=== PATIENT | female | born 1950 | race Caucasian/White ===

== ENCOUNTER 2023-12-17 07:12 | Outpatient (CLI) | payer MEDICARE, BC, SELFPAY ==
--- NOTE | 2023-12-17 08:42 | W.ANESCHARGE ---
Anesthesia Charges Start Date/Time Anesthesia Start Date: 12/17/23 Anesthesia Start Time: 08:15 Stop Date/Time Anesthesia Stop Date: 12/17/23 Anesthesia Stop Time: 08:40
--- NOTE | 2023-12-17 08:53 | W.ANESCHARGE ---
Anesthesia Charges Start Date/Time Anesthesia Start Date: 12/17/23 Anesthesia Start Time: 08:15 Stop Date/Time Anesthesia Stop Date: 12/17/23 Anesthesia Stop Time: 08:40 Summary Extremes of Age - Over 70 or under 1: MDA
== END 2023-12-17 07:13 | disposition home or self-care (01) ==
LOC: OP CLINIC 07:14
PROVIDERS: PCP Family Medicine; Visit Provider Internal Medicine Gastroenterology
DX: Z12.11 Encounter for screening for malignant neoplasm of colon (principal); K63.5 Polyp of colon; K57.30 Diverticulosis of large intestine without perforation or abscess without bleeding
CPT/HCPCS: 00811; 45380; 88305; 99100; J2704

== ENCOUNTER 2024-09-17 08:12 | Outpatient (RCR) | payer MEDICARE, BC, SELFPAY ==
--- NOTE | 2024-09-17 09:24 | PT.OPEX ---
PT [place] Outpatient Eval PT [facility] Outpatient Eval Start: 09/16/24 17:03 Freq: Status: Active Protocol: Document 09/17/24 07:23 HLA (Rec: 09/17/24 09:18 HLA [id number]) E-signed By Lucero Zimmer, PT, DPT Physical Therapy Outpatient Evaluation Insurance Information Insurance Name Medicare B,Blue Cross/Blue Shield Medical Diagnosis R TKA Treating Diagnosis weakness, pain, stiffness R knee Referring MD Chowdhury Subjective Preferred Name Rosenda Subjective Pt reports pain medial knee mainly on stairs, patellar tendon walking, sit<>stand and walking. She has end stage OA and is undergoing R TKA on . Pt has been riding ex bike, doing some ex at [facility] preop. Pain Comments 6/10 on stairs Date of Last Physician Visit 09/16/24 Date of Surgery (If applicable) 09/22/24 Current Work Status Retired Precautions Weight Bearing Status Weight Bear as Tolerated Therapy Limitations/Systems Review Not Limited Objective Range of Motion B hips 0-110 hip flex, ER/IR WNL R knee 0-125, L knee 0-125 flex ankles 0-15 DF, PF to 70 Strength UES 5/5 except L shldr abd 4/5 R hip 5-/5, R knee ext 5-/5, L LE 5/5 Swelling edema around R knee Palpation pain palpation medial joint line Balance & Gait Gt stable no device, L > R varus. Stairs step to pattern, leads up with L, down with R Balance screen WNL Posture mildly rounded shldrs Sensation/Reflexes intact to light touch Assessment Assessment/Impression Rosenda is a 74 year old female with OA R knee undergoing a R TKA with Dr. Chowdhury at [facility] on . She is ind at baseline , amb no device, drives. Lives with spouse 1 level home, 2 step entry no railing. She will return home same day after surgery, OP at [facility] PT. Pt today presents with good strength B LEs, R knee 0-125. Pt was instructed in TKA ex program (quad sets, ham sets, ankle pumps, heel slides, SAQ, SLR, seated knee flex/ext and hamstring stretches) per protocol to be practiced pre- operatively and for improved learning post-operatively. Pt was instructed in hospital post-op progression in PT, safety, fall prevention. Pt was instructed in positioning in chair, use of ice/polar care, bed, transfer safety, gt safety with walker, stairs, car transfers and outpatient therapy progression. Primary Functional Limitations walking, stairs, pain with mobility Plan of Care Rehabilitation Potential Good Physical Therapy Goals 1. Within this session: Pt will verbalize understanding of pre-op/post-op safety, mobility and exercises with home program issued and pt returning for ongoing therapy after TKA replacement. Treatment Plan/Direct Interventions Gait Training,Ice/Cold/ Vasopneumatic,Manual Therapy, Neuromuscular Re-ed,Orthotics/ Braces,Therapeutic Activities, Therapeutic Exercises Frequency/Duration 1x Patient Will Be Discharged From Therapy Completion of LTG(s),Skills Plateau,Independent w/HEP, Independently Progressing Discharge Plan Comments home with spouse's support Evaluation Billing Untimed Code Treatment Minutes 15 PT Eval No Charge No Complexity Low Certification Information Initial Certification Date 09/17/24 Ending Certification Date 12/15/24 Provider Signature Required Yes Provider Signature Shows Agreement With POC & Medical Necessity Physician NPI Number Write NPI# Here Physician Comment/Change : Physician Signature & Date Requested Please Sign/Date Here
== END 2025-01-15 23:59 | disposition home or self-care (01) ==
PROVIDERS: PCP Family Medicine; Visit Provider Orthopaedic Surgery Sports Medicine
DX: M17.11 Unilateral primary osteoarthritis, right knee (principal); Z96.651 Presence of right artificial knee joint; R53.1 Weakness; M25.661 Stiffness of right knee, not elsewhere classified; Z51.89 Encounter for other specified aftercare
CPT/HCPCS: 97110; 97116; 97161

== ENCOUNTER 2024-09-22 05:54 | Day surgery (SDC) | payer MEDICARE, BC, SELFPAY ==
[2024-09-22] VITALS (18 sets, daily range): BP systolic 126–166; BP diastolic 75–104; PULSE 80–101; RESP 12–23; TEMP 36.1–36.5; O2SAT 92–98; BMI 26.2
--- OUTSIDE RECORDS SUMMARY | 2024-09-22 05:57 | XMS_ITS | Clinical Summary ---
Author Organization [employer] [facility] Address [place], [place] [address] Care Team Providers Care Value Analyst Name Role Phone Eda Sykes MD Primary Care Provide r Allergies Active Allergy Reactions Criticality Noted Date Comments Penicillins Rash 10/28/2007 Medications rosuvastatin (CRESTOR) 10 mg tabletIndications: Hyperlipidemia, unspecified hyperlipidemia type Take 1 Tablet (10 mg) by mouth once daily. 90 Tablet 3 09/16/19 25 Active amLODIPine (NORVASC) 5 mg tabletIndications: HTN (hypertension) Take 1 Tablet (5 mg) by mouth once daily. 90 Tablet 3 09/16/19 25 Active polyethylene glycol-electrolyte (GOLYTELY) 236-22.74-6.74 -5.86 gram suspensionIndicati ons:Screen for colon cancer Drink 2 liters (half the bottle) the day before colonoscopy and 2 liters (remaining prep) 6 hours prior to colonoscopy appointment. 4000 mL 08/22/19 24 025 Discontin ued(*Meghana ent states no longer taking) rosuvastatin (CRESTOR) 10 mg tabletIndications: Hyperlipidemia, unspecified hyperlipidemia type Take 1 Tablet (10 mg) by mouth once daily. 90 Tablet 3 11/29/19 24 025 Discontin ued(Reord er (E-cancel not sent)) amLODIPine (NORVASC) 5 mg tabletIndications: HTN (hypertension) Take 1 Tablet (5 mg) by mouth once daily. 90 Tablet 3 11/29/19 24 025 Discontin ued(Reord er (E-cancel not sent)) Active Problems Problem Noted Date Diagnosed Date Vitamin D deficiency 11/07/2013 Hyperlipidemia 10/04/2012 Osteopenia 10/30/2008 Resolved Problems Problem Noted Date Diagnosed Date Resolved Date Screen for colon cancer 10/31/2012 04/0 11/2013 Overview (10/31/2012): Colonoscopy 10/2012 diverticulosis repeat in 10 years Encounters Date Type Department Care Team Description 09/16/2024 8:00 AM MACHINERY ENGINEER Office Visit [facility] [address] [place] [address] Eda Sykes MD Pre-Op Exam (Right knee replacement 09/22/24 Dr. Chowdhury) 09/16/2024 Travel 09/11/2024 Travel from Last 3 Months Immunizations Name Administration Dates Next Due COVID-19 vaccine (Datadecision NTech 30mcg/0.3mL) VITA ELLIOTT 06/02/2021,10/20/2020,09/29/2020 Pneumococcal Poly,23-Valent (Pneumovax) 10/18/19 19 Pneumococcal conj 13-Valent (Prevnar 13) 018 Td (Age >=7 Years) 11/14/2004 Tdap 09/21/2017 Family History Medical History Relation Name Comments Stroke Father Cancer-colon Maternal Uncle Psychiatric illness Mother Demi rs Relation Name Status Comments Father (Age 84) CVA Maternal Uncle Mother Social History Tobacco Use Types Packs/Day Years Used Date Smoking Tobacco: Never Smokeless Tobacco: Never Tobacco Cessation:Counseling Given: Yes Alcohol Use Standard Drinks/Week Comments No 0 (1 standard drink = 0.6 oz pur e alcohol) PHQ-2 Answer Date Recorded PHQ-2 TOTAL SCORE 0 12/07/2022 Social Connections Answer Date Recorded Do you often feel lonely or isolated from those around you? 0 11/19/2023 Financial Resource Strain Answer Date R ecorded Difficulty of Paying Living Expenses 3 11/19/2023 Difficulty of Paying Living Expenses Not on file 11/19/2023 Food Insecurity Answer Date Recorded Do you worry your food will run out before you are able to buy more? 1 11/19/2023 Transportation Needs Answer Date Record ed Does lack of transportation keep you from medica l appointments? 1 11/19/2023 Does lack of transportation keep you from work, meetings or getting things that you need? 1 11/19/2023 Housing Stability Answer Date Recorded What is your housing situation today? 1 11/19/2023 Utilities Answer Date Recorded Do you have trouble paying f or utilities (for example, heat, electricity, water, phone)? 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 Not on file Not on file Not on ben e Obstetrics History Para Term AB IAB SAB Ectopic Multiple Livin g Live Births 2 2 2 0 0 0 0 0 0 2 Date Outcome GA Total Labor Labor/2nd/3rd Weight Sex Type Anes PTL Toyin A1 A5 Name Clin Term Term Last Filed Vital Signs Vital Sign Reading Time Taken Comments Blood Pressure 161/95 09/16/2024 8:02 AM MACHINERY ENGINEER Pulse 95 09/16/2024 8:02 AM MACHINERY ENGINEER Temperature 36.1 C (96.9 F) 09/16/2015 9:46 AM MACHINERY ENGINEER Respiratory Rate - - Oxygen Saturation 98% 09/16/2024 8:02 AM MACHINERY ENGINEER Inhaled Oxygen Concentration - - Weight 75.8 kg (167 lb) 09/16/2024 8:02 AM MACHINERY ENGINEER Height 170.8 cm (5' 7.25) 11/29/2023 8:27 AM CD T Body Mass Index 25.96 11/29/2023 8:27 AM CDT Plan of Treatment Health Maintenance Due Date Last Done Comments Hepatitis C screening for ag e 18-79 1968 Zoster (shingles) series for age 50+ (1 of 2) 2000 RSV vaccine for adults or (1 - Risk 60-74 years 1-dose series) 2010 Depression screening for age 12+ 12/08/2023 12/07/2022, 12/06/2021, 11/25/2020, Additional history exists Medicare Wellness for age 65+ 12/08/2023, 12/06/2021, 11/25/2020, Additional history exists Mammogram for age 45-75 12/14/2023 12/14/19 23, 12/08/2021, 09/27/2017, Additional history exists COVID-19 vaccine series ( season) 2024 06/02/2021, 10/20/2020, 09/29/2020 Influenza for age 65+ 04/06/2024 BMI (ht and wt on same day) for age 18+ 11/28/2024 11/29/2023, 12/06/2021, 11/25/2020, Additional history exists Tetanus booster 09/21/2027 09/21/2017, 11/14/2004 Lipids for age 45-75 09/16/2029 09/16/2024, 11/29/2023, 12/07/2022, Additional history exists Colonoscopy through age 75 12/16/203312/16, 12/17/2023, 12/17/2023, Additional history exists Tdap Completed 09/21/2017 DEXA/DXA scan for age 65+ Completed 2017, 11/14/2013, 11/17/2010, Additional history exists Pneumococcal series for age 50+ Completed 9, 09/21/2017 Procedures Procedure Name Priority Date/Time Associated Diagnosis Comments LIPID PANEL W REFLEX MEASURED LDL Routine 09/16/2024 8:52 AM MACHINERY ENGINEER Hyperlipidemia, unspecified hyperlipidemia type BASIC METABOLIC PANEL Routine 09/16/2024 8:52 AM MACHINERY ENGINEER HTN (hypertension) CBC WITH AUTO DIFFERENTIAL Routine 09/16/2024 8:52 AM MACHINERY ENGINEER Preoperative examination COLONOSCOPY SCREENING Routine 12/17/2023 12:00 AM CDT Screening for colon cancer XR MAMMO BILAT SCREENING Routine 12/13/2022 8:28 AM CDT Encounter for screening mammogram for malignant neoplasm of breast XR DXA BONE DENSITY 2 SITES AXIAL Routine 09/27/2017 10:40 AM MACHINERY ENGINEER Menopause from Last 3 Months or Most Recently Relevant to Health Maintenance Results * (ABNORMAL) LIPID PANEL W REFLEX MEASURED LDL (09/16/2024 8:52 AM MACHINERY ENGINEER) CHOLESTEROL, TOTAL 200(H) <200 mg/dL [facility] HDL CHOLESTEROL 73 > OR = 50 mg/dL [facility] TRIGLYCERIDES 95 <150 mg/dL [facility] LDL-CHOLESTEROL 108(H) mg/dL (calc) [facility] Comment: Reference range: <100 Desirable range <100 mg/dL for primary prevention; <70 mg/dL for patients with CHD or diabetic patients with > or = 2 CHD risk factors. LDL-C is now calculated using the Joao calculation, which is a validated novel method providing better accuracy than the Friedewald equation in the estimation of LDL-C. Alejandro ORDONEZ et al. FARHAN. 2013;310(19): 1279-6431 (http://education.[employer]/faq/NZR061) CHOL/HDLC RATIO 2.7 <5.0 (calc) [facility] NON HDL CHOLESTEROL 127 <130 mg/dL (calc) [facility] Comment: For patients with diabetes plus 1 major ASCVD risk factor, treating to a non-HDL-C goal of <100 mg/dL (LDL-C of <70 mg/dL) is considered a therapeutic option. Blood BLOOD SPECIMEN / Unknown 09/16/2024 8:52 AM MACHINERY ENGINEER 09/16/2024 8:53 AM MACHINERY ENGINEER Narrative [facility] - 09/17/2024 4:04 AM MACHINERY ENGINEER FASTING:YES FASTING: YES us Eda Sykes MD CHEMISTRY Final Result [facility] [address] [place] [address], [facility] [address] [place] [address] * (ABNORMAL) CBC AND DIFFERENTIAL (09/16/2024 8:52 AM MACHINERY ENGINEER) WHITE BLOOD CELL COUNT 6.4 3.8 - 10.8 Thousand/u L [facility] RED BLOOD CELL COUNT 5.23(H) 3.80 - 5.10 Million/uL [facility] HEMOGLOBIN 15.9(H) 11.7 - 15.5 g/dL [facility] HEMATOCRIT 48.3(H) 35.0 - 45.0 % [facility] MCV 92.4 80.0 - 100.0 fL [facility] MCH 30.4 27.0 - 33.0 pg [facility] MCHC 32.9 32.0 - 36.0 g/dL [facility] Comment: For adults, a slight decrease in the calculated MCHC value (in the range of 30 to 32 g/dL) is most likely not clinically significant; however, it should be interpreted with caution in correlation with other red cell parameters and the patient's clinical condition. RDW 13.1 11.0 - 15.0 % [facility] PLATELET COUNT 394 140 - 400 Thousand/u L [facility] MPV 10.5 7.5 - 12.5 fL [facility] ABSOLUTE NEUTROPHILS 3,450 1,500 - 7,800 cells/uL [facility] ABSOLUTE LYMPHOCYTES 2,144 850 - 3,900 cells/uL [facility] ABSOLUTE MONOCYTES 563 200 - 950 cells/uL [facility] ABSOLUTE EOSINOPHILS 173 15 - 500 cells/uL [facility] ABSOLUTE BASOPHILS 70 0 - 200 cells/uL [facility] NEUTROPHILS 53.9 % [facility] LYMPHOCYTES 33.5 % [facility] MONOCYTES 8.8 % [facility] EOSINOPHILS 2.7 % [facility] BASOPHILS 1.1 % [facility] Blood BLOOD SPECIMEN / Unknown 09/16/2024 8:52 AM MACHINERY ENGINEER 09/16/2024 8:53 AM MACHINERY ENGINEER Narrative [facility] - 09/17/2024 4:01 AM MACHINERY ENGINEER FASTING:YES FASTING: YES Eda Sykes MD HEMATOLOGY Final Result [facility] [address] [place] [address], [place] [phone] [address] [facility] [address] [place] [address] * (ABNORMAL) BASIC METABOLIC PANEL (09/16/2024 8:52 AM MACHINERY ENGINEER) Pathologist [facility] GLUCOSE 93 65 - 99 mg/dL [facility] Comment: Fasting reference interval UREA NITROGEN (BUN) 27(H) 7 - 25 mg/dL [facility] CREATININE 1.01(H) 0.60 - 1.00 mg/dL [facility] EGFR 58(L) > OR = 60 mL/min/1.7 3m2 [facility] BUN/CREATININE RATIO 27(H) 6 - 22 (calc) [facility] SODIUM 141 135 - 146 mmol/L [facility] POTASSIUM 4.2 3.5 - 5.3 mmol/L [facility] CHLORIDE 104 98 - 110 mmol/L [facility] CARBON DIOXIDE 27 20 - 32 mmol/L [facility] ELECTROLYTE BALANCE 10 7 - 17 mmol/L (calc) [facility] CALCIUM 10.2 8.6 - 10.4 mg/dL [facility] Blood BLOOD SPECIMEN / Unknown 09/16/2024 8:52 AM MACHINERY ENGINEER 09/16/2024 8:53 AM MACHINERY ENGINEER Narrative [facility] - 09/17/2024 4:04 AM MACHINERY ENGINEER FASTING:YES FASTING: YES Eda Sykes MD CHEMISTRY Final Result [facility] [address] [place] [address], [place] [phone] [address] [facility] [address] [place] [address] * COLONOSCOPY SCREENING (12/17/2023 12:00 AM CDT) Result [facility] Eda Sykes MD GI PROCEDURE ORD Claudia l Result * XR MAMMO BILAT SCREENING (12/13/2022 8:28 AM CDT) Anatomical Region Laterality Modality BREASTS, Breast Left, Breast Right Bilateral Mammography Impressions 12/13/2022 3:55 PM CDT There is no radiographic evidence for malignancy. Recommend annual mammograms. MAMMOGRAM ASSESSMENT: ACR 1 Negative PATIENTS: You will also receive a letter with your examination results in an easy to read format. If you have questions about your results, please contact your referring provider. Narrative 12/13/2022 3:55 PM CDT For Patients: As a result of the Cures Act, medical imaging exams and procedure reports are released immediately into your electronic medical record. You may view this report before your referring provider. If you have questions, please contact your health care provider. XR MAMMO BILAT SCREENING [[id number]] CLINICAL HISTORY: This is an asymptomatic 72 y.o. patient. INDICATION FOR EXAM: Mammogram Screening. TECHNIQUE: CC & MLO views were obtained. This study was evaluated with the assistance of Computer-Aided Detection. COMPARISON FILM: Yes 12/08/21 [facility] 09/27/17 [facility] FINDINGS: The breasts have scattered areas of fibroglandular density. There are no dominant masses, suspicious micro calcifications or areas of architectural distortion. Eda Sykes MD MAMMO Final Result * (ABNORMAL) XR DXA BONE DENSITY 2 SITES AXIAL [[id number]] (09/27/2017 10:40 AM MACHINERY ENGINEER) Anatomical Region Laterality Modality Spine, HIPS, HIPL, HIPR Other Narrative 10/03/2017 10:47 AM MACHINERY ENGINEER Please see scanned document for results of this study. Eda Sykes MD DEXA Final Result from Last 3 Months or Most Recently Relevant to Health Maintenance Insurance [employer] BLUE MR PB ONLY Advance Directives Documents on File Type Date Recorded Patient Manufacturing [employer] Expl anation Healthcare Directive 06/15/2014 2:59 PM A [facility], 10/15/2001 Care Teams Value Analyst Relationship Specialty Start Date End Date Eda Sykes MD [address] [place] [address] PCP - General Family Practice 10/13/10
[2024-09-22] MEDS: LACTATED RINGERS 1000 ML 1,000 ML 100 ML IV (06:05)
[2024-09-22] MEDS: ACETAMINOPHEN 500 MG TABLET 1000 MG PO (06:40)
[2024-09-22] MEDS: OXYCODONE (CR) 10 MG TAB.ER.12H PO (06:40)
[2024-09-22] MEDS: SODIUM CHLORIDE 0.9 % (FLUSH) 10 ML SYRINGE IVF (07:06)
--- NOTE | 2024-09-22 07:08 | W.PM.H&PU ---
History & Physical Update History & Physical Update H&P Reviewed and patient assessed: No changes noted
[2024-09-22] MEDS: MIDAZOLAM HCL 1 MG/ML inj IVP (07:20)
[2024-09-22] MEDS: fentaNYL 100 MCG/2 ML inj IVP (07:20)
--- NOTE | 2024-09-22 07:32 | SUR.PREOP ---
TIME?OUT:?0720 PT/RN/MDA?VERIFICATION?OF?SURGICAL?SITE,?PROCEDURE,?AND?CONSENT OBTAINED?PRIOR?TO?INVASIVE?PROCEDURE.
[2024-09-22] MEDS: CEFAZOLIN 2 GM in 0.9 % SODIUM CHLORIDE Mini-bag 100 ML IVPB (07:45)
[2024-09-22] MEDS: TRANEXAMIC ACID 100 MG/ML INJ 1000 MG IV (07:50)
--- NOTE | 2024-09-22 07:53 | P.ANES_ITS ---
Anesthesia Charges Start Date/Time Anesthesia Start Date: 09/22/24 Anesthesia Start Time: 07:26 Stop Date/Time Anesthesia Stop Date: 09/22/24 Anesthesia Stop Time: 09:31 Summary Extremes of Age - Over 70 or under 1: PACKING CHECKER Coding CPT Codes CPT Codes: ANESTH KNEE ARTHROPLASTY - 01802 ([id number]) P2 - PATIENT W/MILD SYST DISEASE, QK - LUBRICATION WORKER 2-4 CNCRNT ANES PROC, QX - PACKING CHECKER SVC W/ MD MED DIRECTION Additional Codes: Summary - Extremes of Age - Over 70 or under 1: PACKING CHECKER ([id number])
--- NOTE | 2024-09-22 07:53 | W.ANESCHARGE ---
Anesthesia Charges Start Date/Time Anesthesia Start Date: 09/22/24 Anesthesia Start Time: 07:26 Stop Date/Time Anesthesia Stop Date: 09/22/24 Anesthesia Stop Time: 09:31 Summary Extremes of Age - Over 70 or under 1: AUTO SLIP COVER INSTALLER Coding CPT Codes CPT Codes: ANESTH KNEE ARTHROPLASTY - 81008 ([id number]) P2 - PATIENT W/MILD SYST DISEASE, QK - PASSENGER BARGE MASTER 2-4 CNCRNT ANES PROC, QX - AUTO SLIP COVER INSTALLER SVC W/ MD MED DIRECTION Additional Codes: Summary - Extremes of Age - Over 70 or under 1: AUTO SLIP COVER INSTALLER ([id number])
--- NOTE | 2024-09-22 09:29 | CRLHL7_ITS ---
For Patients: As a result of the Cures Act, medical imaging exams and procedure reports are released immediately into your electronic medical record. You may view this report before your referring provider. If you have questions, please contact your health care provider. Indication: Postop. Technique: Right knee 3 views. Comparison: X-ray knee August 2024 Findings/ Impression: Acute postoperative changes of right total knee arthroplasty. Prosthesis are appropriately positioned and well aligned. No periprosthetic fracture. Moderate knee joint effusion, adjacent soft tissue swelling and emphysema. Dictated by Helena Chavez MD @ 09/22/2024 12:40:36 PM (Electronically Signed)
--- NOTE | 2024-09-22 09:35 | PM.ORPRC ---
Procedure Note Date of procedure: 09/22/24 Procedure: PREOPERATIVE DIAGNOSIS: 1. Right knee osteoarthritis, primary, severe POSTOPERATIVE DIAGNOSIS: 1. Right knee osteoarthritis, primary, severe PROCEDURE: 1. Right total knee arthroplasty - subvastus SURGEON: Krzysztof Chowdhury MD. ACTUARIAL ANALYST: CRICKET Cervantes - Of note, a skilled family medicine physician assistant was critical for this case to aid in patient positioning, tissue retraction, limb manipulation/positioning, and closure. ANESTHESIA: Spinal anesthetic IMPLANTS: DePuy J&J all cemented TKA - Attune PS femur size 6 narrow Size 5 tibia 5 poly spacer 38 mm patella TOURNIQUET: 90 min at 300 torr EBL: 50 ml COMPLICATIONS: None evident INDICATIONS: The patient is a pleasant 74-year-old female who has experienced severe right knee pain and difficulty bearing weight. Workup included x-rays which revealed severe osteoarthrosis in the knee. Given the deformity, the dysfunction, and the pain, as well as the failure of nonoperative management, recommendation was made for surgery. FINDINGS: Full-thickness chondral loss throughout the medial compartment and to a lesser degree patellofemoral and lateral compartments. Degenerative meniscus pathology medial greater than lateral. Moderate effusion upon entering the joint. DESCRIPTION OF PROCEDURE: Following a thorough discussion of risks, benefits, and alternatives consent was obtained and the right knee was marked. The patient was brought to the operating room and placed supine on the operating table. Induction of anesthesia was undertaken. 1 g IV Ancef and 1 g tranexamic acid was administered within 1 hr of incision preoperatively. Proper time-out was performed identifying proper patient, site, procedure. The operative extremity was prepped and draped in the appropriate sterile fashion using ChloraPrep after the patient was positioned supine with all bony prominences well padded. A longitudinal, anterior, midline skin incision was made starting approximately 3cm proximal to the superior pole of the patella and advanced distal to the tibial tubercle. A subvastus approach was utilized. A medial subperiosteal sleeve was created with knife, mckeon elevator and curved osteotome. The retropatellar fatpad was resected and the synovium in the suprapatellar pouch excised to visualize the anterior femoral cortex. Femoral preparation was performed via an intramedullary guide. Step drill allowed access into the femoral canal. The distal cutting guide was placed with 5? of valgus and 10 mm cut on the distal femur. Femur was sized using a posterior referencing guide in 3? of external rotation. This found have a best fit with the sizing noted above. The 4 in 1 cutting block was then placed, and the distal femur shaped accordingly. The box cut was then created and the trial implant inserted to confirm appropriate fit. We turned our attention to the proximal tibia. Extramedullary guide was utilized for cutting with the goal of being 90 degree cut from the mechanical axis of the tibia in the varus/valgus plane utilizing tibial crest as the primary alignment. Initially a 3 mm resection was performed from the medial tibial plateau. Ultimately, balancing was achieved in both flexion and extension in both varus and valgus. The knee was able to achieve full extension as well comfortably. The patella was initially measured and found have a thickness of 21 mm. It was resected back to approximately 14 mm. It was sized to be a best fit with as noted above. This was drilled, trial placed. All trials were placed and found to have an excellent stability and balance. At this stage, trial implants were removed, the knee was thoroughly irrigated with normal saline, and the cement was mixed. After irrigation, the knee was thoroughly dried, and cement placed, with the real tibial and femoral implants placed along with the patella. Trial poly spacer was placed and confirmed to have excellent range of motion and full extension, and the real poly spacer opened and inserted. All extra cement was removed, and a 3 min Betadine soak performed. Finally, a final irrigation round with normal saline was performed. Closure performed with 0 Vicryl and #0 Stratafix for the quad tendon/retinaculum. 2-0 Vicryl for the subcutaneous and 4-0 Stratafix for subcuticular closure. Dressings were applied and the patient was awoken from anesthesia after the tourniquet deflated and transferred the PACU in stable condition. A skilled family medicine physician assistant was critical for this case to aid in patient positioning, tissue retraction, bone exposure, limb manipulation/positioning, patient safety, and closure. PLAN: 1. Weight bear as tolerated operative extremity. 2. 23 hr perioperative antibiotics. 3. Ice. 4. PT/OT consults for ambulation assistance/mobility education. 5. Social work consult for discharge planning. 6. DVT prophylaxis with at SCDs and aspirin twice daily.
--- NOTE | 2024-09-22 09:40 | P.ANES_ITS ---
Anesthesia Charges Start Date/Time Anesthesia Start Date: 09/22/24 Anesthesia Start Time: 07:26 Stop Date/Time Anesthesia Stop Date: 09/22/24 Anesthesia Stop Time: 09:31 Summary Extremes of Age - Over 70 or under 1: MDA Coding CPT Codes CPT Codes: ANESTH KNEE ARTHROPLASTY - 91355 ([id number]) QK - HEALTH CENTER ASSOCIATE 2-4 CNCRNT ANES PROC, QX - CANINE SERVICE TEACHER SVC W/ MD MED DIRECTION, P2 - PATIENT W/MILD SYST DISEASE Additional Codes: Summary - Extremes of Age - Over 70 or under 1: MDA ([id number])
--- NOTE | 2024-09-22 09:40 | W.PM.NB ---
Nerve Block Nerve Block Time Seen by Provider: 07:23 Date Seen: 09/22/24 Type of block requested by surgeon for post-operative analgesia: adductor canal Side: right Time out performed: Yes Verification of patient name: Yes Verification of date of : Yes Site marking: site marked Name of person performing procedure: Tony Continuous monitoring Was continuous monitoring of O2 sat, B/P, building performance specialist, recorded every 15 minutes?: Yes Procedure Checklist: sterile prep, needles and gloves Ultrasound guided. Images saved: Yes Medications given in 5ml increments after negative aspiration: Marcaine %: 0.25 mL: 15 Needle gauge: 20 Precedex (mcg): 25 Patient tolerated procedure well: Yes Block Charges Block Charge (with Pro Fee): Femoral Nerve Use of Ultrasound Machine for Block: Yes- US Guidance/pain block
--- NOTE | 2024-09-22 09:41 | W.PM.NB ---
Nerve Block Nerve Block Time Seen by Provider: 07:23 Date Seen: 09/22/24 Type of block requested by surgeon for post-operative analgesia: geniculars Side: right Time out performed: Yes Verification of patient name: Yes Verification of date of : Yes Site marking: site marked Name of person performing procedure: Tony Continuous monitoring Was continuous monitoring of O2 sat, B/P, health analytics consultant, recorded every 15 minutes?: Yes Procedure Checklist: sterile prep, needles and gloves Ultrasound guided. Images saved: Yes Medications given in 5ml increments after negative aspiration: Marcaine %: 0.25 mL: 9 Needle gauge: 25 Patient tolerated procedure well: Yes Block Charges Block Charge (with Pro Fee): Genicular Nerve Block
[2024-09-22] MEDS: fentaNYL 100 MCG/2 ML inj 50 MCG IVP (09:51)
--- NOTE | 2024-09-22 10:09 | SUR.PHASEI ---
patient met discharge criteria per anesthesia
[2024-09-22] MEDS: 0.9 % SODIUM CHLORIDE 500 ML 500 ML 100 ML IV (10:20)
[2024-09-22] MEDS: hydrOXYzine pamoate 25 MG CAPSULE PO (10:50)
[2024-09-22] MEDS: OXYCODONE 5 MG TABLET PO (13:05)
--- NOTE | 2024-09-22 14:50 | SUR.PHASEII ---
Pt tried to void after PT , not successful. Bladder scan for 236cc. Pt states my butt still feels numb. Pt ambulated around unit and will try to void.
--- NOTE | 2024-09-22 15:27 | SUR.PHASEII ---
Straight cath for 350cc mcgowan yellow urine. Wheelchair out to car with .
--- NOTE | 2024-09-22 15:28 | SUR.PHASEII ---
Encourage PO intake at home and to try to void again in 2 hours.
== END 2024-09-22 15:29 | disposition home or self-care (01) ==
PROVIDERS: PCP Family Medicine; Visit Provider Orthopaedic Surgery Sports Medicine
PROC: (CPT 27447; principal; 2024-09-22 07:30)
DX: M17.11 Unilateral primary osteoarthritis, right knee (principal); G89.18 Other acute postprocedural pain
CPT/HCPCS: 27447; 01402; 64447; 64454; 73560; 76942; 97110; 97116; 97161; 99100; A9270; C1776; J0665; J0690; J1100; J2250; J2405; J2704; J3010; J3490; J7030; J7120

== ENCOUNTER 2025-07-01 13:04 | Outpatient (CLI) | payer MEDICARE, BC, SELFPAY ==
[2025-07-01 13:17] VITALS: BP 147/82; PULSE 96; RESP 16; TEMP 36.6; O2SAT 96
--- NOTE | 2025-07-01 13:40 | P.PCN_ITS ---
Procedure Note Time Seen by Provider: 13:45 Date Seen: 07/01/25 Provider Contact Time: 14:30 Date of procedure: 07/01/25 Will [facility] bill your pro fee for this procedure?: Yes Procedure: CRYONEUROLYSIS TREATMENT REPORT REFERRING PROVIDER: Krzysztof Chowdhury TREATMENT PROVIDER: Tk Jimenez PREOPERATIVE DIAGNOSIS: Left knee osteoarthritis POSTOPERATIVE DIAGNOSIS: Left knee osteoarthritis? PROCEDURE: Cryoneurolysis of Multiple Sensory Nerves of the Knee ANESTHESIA: Local INDICATIONS: The patient is a very pleasant 75-year-old female patient with primary osteoarthritis involving the left knee who presents today for cryoneurolysis of multiple sensory nerves to the knee for severe knee pain.?Patient medical history was reviewed. The risks, benefits, treatment alternatives, and complications were discussed with the patient, including but not limited to bleeding, infection, nerve or tissue damage.?Informed consent was obtained. ? PRE-TREATMENT MOTOR ASSESSMENT/PAIN SCORE: Patient was able to demonstrate intact gross motor function with plantarflexion, dorsiflexion, adduction, abduction, hip flexion, and extension of the lower extremity.?Pre-treatment pain score of 3 out of 10 in the left knee. DESCRIPTION OF PROCEDURE: After obtaining informed consent, the patient was brought back to the treatment room and positioned supine on the table.?The left lower extremity was prepped with Chlorhexadine.?We began the procedure by performing our procedural pause.?Once this was completed and verified to be accurate, I began the procedure by identifying the nerves with the use of bedside ultrasound.?After the nerves were identified, the skin was marked and, using 1% lidocaine plain, the area of the nerves were anesthetized. ? After the anesthetic was administered, the Smart Tip 2190 cryoneurolysis needle was inserted into the treatment sites using ultrasound guidance.?Treatment was then initiated on the left lower extremity with the following nerves treated: Superior, superior medial, superior lateral, inferior medial genicular nerves and the infrapatellar branch of the saphenous nerve. At the termination of the treatment, the cryoneurolysis needle was removed with the patient's skin cleansed and Band-Aids and compression dressing applied. Patient tolerated the procedure without any incident or concern.? Patient was then instructed to stand, mobilize the joint, and was examined to ensure gross motor skills were intact. COMPLICATIONS: None POST-TREATMENT PAIN SCORE: 0 out of 10 in the left knee DISPOSITION: Discharge instructions were given to the patient with education on the post-procedure expectations. Patient was instructed to call the Ortho clinic with any post-procedure concerns or questions.
[2025-07-01 14:23] VITALS: BP 153/83; PULSE 96; RESP 16; O2SAT 97
== END 2025-07-01 14:35 | disposition home or self-care (01) ==
LOC: OP CLINIC 13:04
PROVIDERS: PCP Family Medicine; Visit Provider Nurse Anesthetist, Certified Registered
DX: M17.12 Unilateral primary osteoarthritis, left knee (principal)
CPT/HCPCS: 64640; 76942; C9809

== ENCOUNTER 2025-07-20 06:57 | Day surgery (SDC) | payer MEDICARE, BC, SELFPAY ==
[2025-07-20] VITALS (19 sets, daily range): BP systolic 91–147; BP diastolic 57–92; PULSE 78–96; RESP 13–21; TEMP 36.3–37.7; O2SAT 92–97; BMI 26.6
--- NOTE | 2025-07-20 07:33 | W.PM.H&PU ---
History & Physical Update History & Physical Update H&P Reviewed and patient assessed: No changes noted
[2025-07-20] MEDS: SODIUM CHLORIDE 0.9 % (FLUSH) 10 ML SYRINGE IVF (07:40)
[2025-07-20] MEDS: LACTATED RINGERS 1000 ML 1,000 ML 100 ML IV ×3 (07:40→15:00)
[2025-07-20] MEDS: ACETAMINOPHEN 500 MG TABLET 1000 MG PO (08:37)
[2025-07-20] MEDS: OXYCODONE (CR) 10 MG TAB.ER.12H PO (08:37)
[2025-07-20] MEDS: MIDAZOLAM HCL 1 MG/ML inj IVP (08:46)
--- NOTE | 2025-07-20 08:46 | SUR.PREOP ---
TIME?OUT:?0737 PT/Maura Irby RN/Dr. Tony MDA?VERIFICATION?OF?SURGICAL?SITE left knee,?PROCEDURE,?AND?CONSENT OBTAINED?PRIOR?TO?INVASIVE?PROCEDURE.
--- NOTE | 2025-07-20 09:09 | P.ANES_ITS ---
Anesthesia Charges Start Date/Time Anesthesia Start Date: 07/20/25 Anesthesia Start Time: 09:11 Stop Date/Time Anesthesia Stop Date: 07/20/25 Anesthesia Stop Time: 11:12 Summary Extremes of Age - Over 70 or under 1: MDA Coding CPT Codes CPT Codes: ANESTH KNEE ARTHROPLASTY - 64295 ([id number]) P2 - PATIENT W/MILD SYST DISEASE, QK - SECURITY PROJECT MANAGER 2-4 CNCRNT ANES PROC, QX - HRIS COORDINATOR SVC W/ MD MED DIRECTION Additional Codes: Summary - Extremes of Age - Over 70 or under 1: MDA ([id number])
--- NOTE | 2025-07-20 09:09 | W.ANESCHARGE ---
Anesthesia Charges Start Date/Time Anesthesia Start Date: 07/20/25 Anesthesia Start Time: 09:11 Stop Date/Time Anesthesia Stop Date: 07/20/25 Anesthesia Stop Time: 11:12 Summary Extremes of Age - Over 70 or under 1: MDA Coding CPT Codes CPT Codes: ANESTH KNEE ARTHROPLASTY - 13174 ([id number]) P2 - PATIENT W/MILD SYST DISEASE, QK - DOLPHIN TRAINER 2-4 CNCRNT ANES PROC, QX - ELEVATOR OPERATOR SVC W/ MD MED DIRECTION Additional Codes: Summary - Extremes of Age - Over 70 or under 1: MDA ([id number])
--- NOTE | 2025-07-20 09:09 | W.PM.NB ---
Nerve Block Nerve Block Time Seen by Provider: 08:45 Date Seen: 07/20/25 Type of block requested by surgeon for post-operative analgesia: adductor canal Side: left Time out performed: Yes Verification of patient name: Yes Verification of date of : Yes Site marking: site marked Name of person performing procedure: Tony Continuous monitoring Was continuous monitoring of O2 sat, B/P, radiographer cardiac catheterization, recorded every 15 minutes?: Yes Procedure Checklist: sterile prep, needles and gloves Ultrasound guided. Images saved: Yes Medications given in 5ml increments after negative aspiration: Marcaine %: 0.25 mL: 15 Needle gauge: 20 Precedex (mcg): 25 Patient tolerated procedure well: Yes Block Charges Block Charge (with Pro Fee): Femoral Nerve Use of Ultrasound Machine for Block: Yes- US Guidance/pain block
--- NOTE | 2025-07-20 09:10 | W.PM.NB ---
Nerve Block Nerve Block Time Seen by Provider: 08:45 Date Seen: 07/20/25 Type of block requested by surgeon for post-operative analgesia: geniculars Side: left Time out performed: Yes Verification of patient name: Yes Verification of date of : Yes Site marking: site marked Name of person performing procedure: Tony Continuous monitoring Was continuous monitoring of O2 sat, B/P, physician compensation analyst, recorded every 15 minutes?: Yes Procedure Checklist: sterile prep, needles and gloves Ultrasound guided. Images saved: Yes Medications given in 5ml increments after negative aspiration: Marcaine %: 0.25 mL: 9 Needle gauge: 25 Patient tolerated procedure well: Yes Block Charges Block Charge (with Pro Fee): Genicular Nerve Block
[2025-07-20] MEDS: TRANEXAMIC ACID 100 MG/ML INJ 1000 MG IV (09:27)
--- NOTE | 2025-07-20 10:54 | PM.ORPRC ---
Procedure Note Date of procedure: 07/20/25 Procedure: PREOPERATIVE DIAGNOSIS: 1. Left knee osteoarthritis, primary, severe POSTOPERATIVE DIAGNOSIS: 1. Left knee osteoarthritis, primary, severe PROCEDURE: 1. Left total knee arthroplasty - subvastus; limited tourniquet; cemented SURGEON: Krzysztof Chowdhury MD. PATROL COMMANDER: CRICKET Cervantes - Of note, a skilled delivery driver assistant was critical for this case to aid in patient positioning, tissue retraction, limb manipulation/positioning, and closure. ANESTHESIA: Spinal anesthetic EBL: 100 ml IMPLANTS: DePuy J&J all cemented TKA - Attune PS femur size 6 narrow Size 5 tibia 5mm poly spacer 38mm patella TOURNIQUET: 30 minutes at 250 torr COMPLICATIONS: None evident INDICATIONS: The patient is a pleasant 75-year-old female who has experienced severe left knee pain and difficulty bearing weight. Workup included x-rays which revealed severe osteoarthrosis in the knee. Given the deformity, the dysfunction, and the pain, as well as the failure of nonoperative management, recommendation was made for surgery. FINDINGS: Full-thickness chondral loss diffusely throughout the medial compartment with erosion of the medial femur and tibial plateau. Significant chondromalacia patellofemoral and lateral compartment as well. Degenerative meniscus pathology medial greater than lateral. Moderate effusion upon entering the joint. DESCRIPTION OF PROCEDURE: Following a thorough discussion of risks, benefits, and alternatives consent was obtained and the left knee was marked. The patient was brought to the operating room and placed supine on the operating table. Induction of anesthesia was undertaken. 1 g IV Ancef and 1 g tranexamic acid was administered within 1 hr of incision preoperatively. Proper time-out was performed identifying proper patient, site, procedure. The operative extremity was prepped and draped in the appropriate sterile fashion using ChloraPrep after the patient was positioned supine with all bony prominences well padded. A longitudinal, anterior, midline skin incision was made starting approximately 3cm proximal to the superior pole of the patella and advanced distal to the tibial tubercle. A subvastus approach was utilized. A medial subperiosteal sleeve was created with knife, mckeon elevator and curved osteotome. The retropatellar fatpad was resected and the synovium in the suprapatellar pouch excised to visualize the anterior femoral cortex. Femoral preparation was performed via an intramedullary guide. Step drill allowed access into the femoral canal. The distal cutting guide was placed with 5? of valgus and 11 mm cut on the distal femur due to a 5?+ flexion contracture. Femur was sized using a posterior referencing guide in 3? of external rotation. This found have a best fit with the sizing noted above. The 4 in 1 cutting block was then placed, and the distal femur shaped accordingly. The box cut was then created and the trial implant inserted to confirm appropriate fit. We turned our attention to the proximal tibia. Extramedullary guide was utilized for cutting with the goal of being 90 degree cut from the mechanical axis of the tibia in the varus/valgus plane utilizing tibial crest as the primary alignment. Initially a 2 mm resection was performed from the medial tibial plateau. Ultimately, balancing was achieved in both flexion and extension in both varus and valgus. The knee was able to achieve full extension as well comfortably. The patella was initially measured and found have a thickness of 24 mm. It was resected back to approximately 14 mm. It was sized to be a best fit with as noted above. This was drilled, trial placed. All trials were placed and found to have an excellent stability and balance. At this stage, trial implants were removed, the knee was thoroughly irrigated with normal saline, and the cement was mixed. After irrigation, the knee was thoroughly dried, and cement placed, with the real tibial and femoral implants placed along with the patella. Trial poly spacer was placed and confirmed to have excellent range of motion and full extension, and the real poly spacer opened and inserted. All extra cement was removed, and a 3 min Betadine soak performed. Finally, a final irrigation round with normal saline was performed. Closure performed with 0 PDS and #0 Stratafix for the quad tendon/retinaculum. 2-0 Vicryl/Stratafix for the subcutaneous and 4-0 Monocryl for subcuticular closure. Dressings were applied and the patient was awoken from anesthesia after the tourniquet deflated and transferred the PACU in stable condition. A skilled delivery driver assistant was critical for this case to aid in patient positioning, tissue retraction, bone exposure, limb manipulation/positioning, patient safety, and closure. PLAN: 1. Weight bear as tolerated operative extremity. 2. 23 hr perioperative antibiotics. 3. Ice. 4. PT/OT consults for ambulation assistance/mobility education. 5. Social work consult for discharge planning. 6. DVT prophylaxis with at SCDs and aspirin twice daily.
--- NOTE | 2025-07-20 11:09 | CRLHL7_ITS ---
For Patients: As a result of the Cures Act, medical imaging exams and procedure reports are released immediately into your electronic medical record. You may view this report before your referring provider. If you have questions, please contact your health care provider. Indication: total knee replacement Technique: Two views left knee Findings/Impression: Hardware from a left total knee arthroplasty is in satisfactory position. Bone alignment is normal. No sign of acute fracture. Postop changes are within normal limits. Dictated by Reji Chi MD @ 07/20/2025 11:33:59 AM (Electronically Signed)
--- NOTE | 2025-07-20 11:15 | W.ANESCHARGE ---
Anesthesia Charges Start Date/Time Anesthesia Start Date: 07/20/25 Anesthesia Start Time: 09:11 Stop Date/Time Anesthesia Stop Date: 07/20/25 Anesthesia Stop Time: 11:12 Summary Extremes of Age - Over 70 or under 1: ADVERTISING INTERN Coding CPT Codes CPT Codes: ANESTH KNEE ARTHROPLASTY - 62086 ([id number]) P2 - PATIENT W/MILD SYST DISEASE, QK - DATA ENTRY CLERK 2-4 CNCRNT ANES PROC, QX - ADVERTISING INTERN SVC W/ MD MED DIRECTION Additional Codes: Summary - Extremes of Age - Over 70 or under 1: ADVERTISING INTERN ([id number])
--- NOTE | 2025-07-20 11:15 | P.ANES_ITS ---
Anesthesia Charges Start Date/Time Anesthesia Start Date: 07/20/25 Anesthesia Start Time: 09:11 Stop Date/Time Anesthesia Stop Date: 07/20/25 Anesthesia Stop Time: 11:12 Summary Extremes of Age - Over 70 or under 1: PATIENT CASE COORDINATOR Coding CPT Codes CPT Codes: ANESTH KNEE ARTHROPLASTY - 96567 ([id number]) P2 - PATIENT W/MILD SYST DISEASE, QK - FULL TIME STAFF INTERPRETER 2-4 CNCRNT ANES PROC, QX - PATIENT CASE COORDINATOR SVC W/ MD MED DIRECTION Additional Codes: Summary - Extremes of Age - Over 70 or under 1: PATIENT CASE COORDINATOR ([id number])
--- NOTE | 2025-07-20 11:43 | SUR.PHASEI ---
patient met discharge criteria per anesthesia
[2025-07-20] MEDS: IBUPROFEN 200 MG TABLET 600 MG PO (12:12)
== END 2025-07-20 16:45 | disposition home or self-care (01) ==
LOC: OR 06:58
PROVIDERS: PCP Family Medicine; Visit Provider Orthopaedic Surgery Sports Medicine
PROC: (CPT 27447; principal; 2025-07-20 09:00)
DX: M17.12 Unilateral primary osteoarthritis, left knee (principal); G89.18 Other acute postprocedural pain
CPT/HCPCS: 27447; 01402; 64447; 64454; 73560; 76942; 97110; 97116; 97161; 99100; A9270; C1776; J0665; J0690; J1100; J2250; J2371; J2405; J2704; J3010; J7120